=== PATIENT | female | born 1970 | race Caucasian/White ===

== ENCOUNTER 2016-10-21 10:02 | Day surgery (SDC) | payer BC ==
[~2016-10-21] VITALS: Ht 162.6 cm; Wt 59.0 kg
[~2016-10-21 10:02] MED LIST: AMITRIPTYLINE150 MG PO; BACTROBAN OINTM22 GM TP; CLEOCIN300 MG PO; ELAVIL50 MG PO; METHADONE10 MG PO; NOHOMEMEDS; OXYCODONE HCL10 MG PO; SEROQUEL12.5 MG PO; VALIUM10 MG PO; XANAX0.5 MG PO
[2016-10-21 10:29] VITALS: BP 178/108
[2016-10-21 13:30] VITALS: BP 162/102
[2016-10-21 13:50] VITALS: BP 148/80
== END 2016-10-21 14:10 | disposition home or self-care (01) ==
LOC: SDC 10:02
PROC: 0U5MXZZ Destruction of Vulva, External Approach (ICD-10-PCS; principal; 2016-10-21)
DX: D07.1 Carcinoma in situ of vulva (principal); Z87.891 Personal history of nicotine dependence; Z79.891 Long term (current) use of opiate analgesic; Z88.8 Allergy status to other drugs, medicaments and biological substances
CPT/HCPCS: 87086; 88305; 88342 TC; J0330; J0690; J1170; J2250; J2405; J3010